=== PATIENT | female | born 1960 | race Caucasian/White ===

== ENCOUNTER 2021-01-14 18:44 | Emergency (ER) | payer BC ==
[~2021-01-14] VITALS: Ht 154.9 cm; Wt 68.9 kg
[2021-01-14 19:30] VITALS: BP_SYST 177
--- NOTE | 2021-01-14 19:30 | NUR ---
Patient triaged and placed in waiting room. BP elevated, patient appears in no acute distress at this time. Accompanied by elf , awaiting available bed, and MD notified of need for MSE.
--- NOTE | 2021-01-14 23:41 | NUR ---
ER in triage examining patient.
--- NOTE | 2021-01-15 00:55 | NUR ---
PT ARRIVED IN ER FOR NECK, AND HEAD PAIN. STATES IT STARTED THANKSGI EVENING. PT STATES SHE HAD ALOT OF PAIN ON THE . AND TODAY PT IS HAVING 8/10 PAIN. A&OX4. PT WENT TO URGENT CARE BEFORE COMING OVER HERE.
[2021-01-15 01:08] LABS: CALCIUM 9.6 mg/dL (8.4-11.0); CREATININE 0.67 mg/dL (0.55-1.30); POTASSIUM 3.4 mmol/L (3.5-5.1)
[2021-01-15 01:14] LABS: TOTAL BILIRUBIN 0.2 mg/dL (0.0-1.0)
[2021-01-15 01:19] LABS: BASOPHILS % (AUTO) 0.7 % (0.0-2.0); EOSINOPHILS % (AUTO) 0.7 % (0.0-4.0); HEMATOCRIT 40.7 % (36-48); HEMOGLOBIN 13.9 g/dL (12.0-16.0); LYMPHOCYTES # (AUTO) 1.8 K/uL (1.0-5.5); LYMPHOCYTES % (AUTO) 27.4 % (20.5-51.5); MEAN CORPUSCULAR HEMOGLOBIN 34 pg (27-31); MEAN CORPUSCULAR HGB CONC 34 % (32-36); MEAN CORPUSCULAR VOLUME 98 fL (79.0-98.0); MONOCYTES # (AUTO) 0.5 K/uL (0.0-1.0); NEUTROPHILS # (AUTO) 4.1 K/uL (1.8-7.7); NEUTROPHILS % (AUTO) 63.2 % (40.0-70.0); PLATELET COUNT (AUTO) 347 K/uL (130-430); RED BLOOD CELL COUNT(AUTO) 4.16 MIL/uL (4.2-6.2); RED CELL DISTRIBUTION WIDTH 12.9 % (9.0-15.0); WHITE BLOOD COUNT (AUTO) 6.5 K/uL (4.8-10.8)
[2021-01-15 02:56] VITALS: BP_SYST 177
--- NOTE | 2021-01-15 02:57 | NUR ---
Patient given written and verbal discharge instructions and verbalizes understanding. ER MD discussed with patient the results and treatment provided. Patient in stable condition. ID arm band removed. Patient educated on pain management and to follow up with PMD. Pain Scale 2/10. Opportunity for questions provided and answered. Medication side effect fact sheet provided.
== END 2021-01-15 02:56 | disposition home or self-care (01) ==
LOC: SED 18:44
DX: R51.9 Headache, unspecified (principal); R42 Dizziness and giddiness; Z88.0 Allergy status to penicillin
CPT/HCPCS: 36415; 70450-TC; 76376; 80053; 85025; 93005; 99285